=== PATIENT | female | born 1960 | race American Indian/Alaskan Native ===

== ENCOUNTER 2017-04-09 00:02 | Inpatient (IN) | payer OTHER ==
[2017-04-09 01:59] LABS: Anion Gap 24 mmol/L; BUN/Creatinine Ratio 16; Blood Urea Nitrogen 14 mg/dL (7-17); Calcium 10.2 mg/dL (8.4-10.2); Carbon Dioxide 22 mmol/L (22-30); Chloride 102.7 mmol/L (98-107); Glucose 99 mg/dL (65-100); Potassium 4.2 mmol/L (3.6-5.0); Sodium 144 mmol/L (137-145)
[2017-04-09 02:09] LABS: Hematocrit 38.4 % (30.3-42.9); Hemoglobin 13.2 gm/dl (10.1-14.3); Mean Corpuscular HGB Conc 34 % (30-34); Mean Corpuscular Hemoglobin 28 pg (28-32); Mean Corpuscular Volume 80 fl (79-97); Platelet Count 265 K/mm3 (140-440); Red Blood Count 4.77 M/mm3 (3.65-5.03); Red Cell Distribution Width 13.4 % (13.2-15.2); White Blood Count 4.8 K/mm3 (4.5-11.0)
[2017-04-09 02:57] LABS: Basophils % (Manual) 0 % (0.0-1.8); Blastocytes % (Manual) 0 %; Diff Status Complete; Platelet Estimate Consistent w Auto
--- NOTE | 2017-04-09 07:25 | XRay Report ---
CHEST 2 VIEWS INDICATION: Shortness of breath. COMPARISON: None similar at this institution. FINDINGS: PA and lateral chest radiographs demonstrate normal cardiomediastinal silhouette. Clear lungs. Intact bones. Motion partly limits lateral view. CONCLUSION: No acute disease in the chest. Thank you for the opportunity to participate in this patient's care.
--- NOTE | 2017-04-09 07:28 | Emergency Department Report ---
ED General Adult HPI - General Chief complaint: Dyspnea/Respdistress Stated complaint: DAVID Time Seen by Provider: 04/09/17 07:25 Source: patient Mode of arrival: Ambulatory Limitations: No Limitations - Related Data Allergies Allergy/AdvReac Type Severity Reaction Status Date / Time Sulfa (Sulfonamide Allergy Unknown Verified 04/09/17 00:22 Antibiotics) ED Review of Systems ROS: Stated complaint: DAVID Other details as noted in HPI ED Past Medical Hx - Past Medical History Previous Medical History?: Yes Additional medical history: pre-diabetic - Surgical History Past Surgical History?: Yes - Social History Smoking Status: Never Smoker ED Physical Exam - General Limitations: No Limitations ED Course Vital Signs 04/09/17 04/09/17 04/09/17 00:05 00:23 07:10 Temperature 97.4 F L 97.4 F L Pulse Rate 70 71 Respiratory 24 22 18 Rate Blood Pressure 167/100 167/100 O2 Sat by Pulse 100 100 99 Oximetry ED Medical Decision Making - Lab Data Result diagrams: 04/09/17 00:31 04/09/17 00:31 Laboratory Results - last 24 hr 04/09/17 04/09/17 04/09/17 00:31 00:31 05:03 WBC 4.8 RBC 4.77 Hgb 13.2 Hct 38.4 MCV 80 MCH 28 MCHC 34 RDW 13.4 Plt Count 265 Lymph % (Auto) Dental Service Technician Add Manual Diff Complete Total Counted 100 Seg Neutrophils % Dental Service Technician Seg Neuts % (Manual) 21.0 L Band Neutrophils % 0 Lymphocytes % (Manual) 73.0 H Reactive Lymphs % (Man) 0 Monocytes % (Manual) 4.0 Eosinophils % (Manual) 2.0 Basophils % (Manual) 0 Metamyelocytes % 0 Myelocytes % 0 Promyelocytes % 0 Blast Cells % 0 Nucleated RBC % Not Reportable Seg Neutrophils # Man 1.0 L Band Neutrophils # 0.0 Lymphocytes # (Manual) 3.5 Abs React Lymphs (Man) 0.0 Monocytes # (Manual) 0.2 Eosinophils # (Manual) 0.1 Basophils # (Manual) 0.0 Metamyelocytes # 0.0 Myelocytes # 0.0 Promyelocytes # 0.0 Blast Cells # 0.0 WBC Morphology Not Reportable Hypersegmented Neuts Not Reportable Hyposegmented Neuts Not Reportable Hypogranular Neuts Not Reportable Smudge Cells Not Reportable Toxic Granulation Not Reportable Toxic Vacuolation Not Reportable Dohle Bodies Not Reportable Pelger-Huet Anomaly Not Reportable Alfie Rods Not Reportable Platelet Estimate Consistent w auto Clumped Platelets Not Reportable Plt Clumps, EDTA Not Reportable Large Platelets Not Reportable Giant Platelets Not Reportable Platelet Satelliting Not Reportable Plt Morphology Comment Not Reportable RBC Morphology Not Reportable Dimorphic RBCs Not Reportable Polychromasia Not Reportable Hypochromasia Not Reportable Poikilocytosis Not Reportable Anisocytosis Not Reportable Microcytosis Not Reportable Macrocytosis Not Reportable Spherocytes Not Reportable Pappenheimer Bodies Not Reportable Sickle Cells Not Reportable Target Cells Not Reportable Tear Drop Cells Not Reportable Ovalocytes Not Reportable Helmet Cells Not Reportable Cartwright-[place] Bodies Not Reportable [place] Rings Not Reportable Darlene Cells Not Reportable Bite Cells Not Reportable Crenated Cell Not Reportable Elliptocytes Not Reportable Acanthocytes (Spur) Not Reportable Rouleaux Not Reportable Hemoglobin C Crystals Not Reportable Schistocytes Not Reportable Malaria parasites Not Reportable Janes Bodies Not Reportable Hem Pathologist Commnt No Sodium 144 Potassium 4.2 Chloride 102.7 Carbon Dioxide 22 Anion Gap 24 BUN 14 Creatinine 0.9 Estimated GFR > 60 BUN/Creatinine Ratio 16 Glucose 99 Calcium 10.2 Troponin T < 0.010 < 0.010 04/09/17 06:46 WBC RBC Hgb Hct MCV MCH MCHC RDW Plt Count Lymph % (Auto) Add Manual Diff Total Counted Seg Neutrophils % Seg Neuts % (Manual) Band Neutrophils % Lymphocytes % (Manual) Reactive Lymphs % (Man) Monocytes % (Manual) Eosinophils % (Manual) Basophils % (Manual) Metamyelocytes % Myelocytes % Promyelocytes % Blast Cells % Nucleated RBC % Seg Neutrophils # Man Band Neutrophils # Lymphocytes # (Manual) Abs React Lymphs (Man) Monocytes # (Manual) Eosinophils # (Manual) Basophils # (Manual) Metamyelocytes # Myelocytes # Promyelocytes # Blast Cells # WBC Morphology Hypersegmented Neuts Hyposegmented Neuts Hypogranular Neuts Smudge Cells Toxic Granulation Toxic Vacuolation Dohle Bodies Pelger-Huet Anomaly Alfie Rods Platelet Estimate Clumped Platelets Plt Clumps, EDTA Large Platelets Giant Platelets Platelet Satelliting Plt Morphology Comment RBC Morphology Dimorphic RBCs Polychromasia Hypochromasia Poikilocytosis Anisocytosis Microcytosis Macrocytosis Spherocytes Pappenheimer Bodies Sickle Cells Target Cells Tear Drop Cells Ovalocytes Helmet Cells Cartwright-[place] Bodies [place] Rings [place] Cells Bite Cells Crenated Cell Elliptocytes Acanthocytes (Spur) Rouleaux Hemoglobin C Crystals Schistocytes Malaria parasites Janes Bodies Hem Pathologist Commnt Sodium Potassium Chloride Carbon Dioxide Anion Gap BUN Creatinine Estimated GFR BUN/Creatinine Ratio Glucose Calcium Troponin T < 0.010 - EKG Data -: EKG Interpreted by Me EKG shows normal: sinus rhythm, axis, intervals, QRS complexes, ST-T waves Rate: normal - EKG Data Interpretation: other (consider left atrial abnormality) Critical care attestation.: If time is entered above; I have spent that time in minutes in the direct care of this critically ill patient, excluding procedure time. ED Disposition Condition: Stable Referrals: PRIMARY CARE, [Primary Care Provider] - 3-5 Days
[2017-04-09] MEDS ORDERED: NACL ONE (07:54)
--- NOTE | 2017-04-09 08:24 | Emergency Department Report ---
ED Chest Pain HPI - General Chief Complaint: Dyspnea/Respdistress Stated Complaint: DAVID Time Seen by Provider: 04/09/17 07:25 Source: patient Mode of arrival: Ambulatory Limitations: No Limitations - History of Present Illness Initial Comments: Patient states that she's been coughing for a week. Yesterday she coughed up yellow phlegm. Then she developed substernal chest pressure which she states has been persistent through the night although now somewhat mild. The pain did not radiate. It was not pleuritic. She does not report any recent travel. She is a nonsmoker within negative known first-degree relative history of coronary artery disease. She's never had a prior workup for chest pain in the past. She was found to have a blood pressure 167/100 at triage. This became normal without intervention. MD Complaint: chest pain -: Gradual Onset: other (with coughing) Pain Location: substernal Pain Radiation: none Severity scale (0 -10): 4 Quality: pressure Consistency: intermittent Improves With: nothing Worsens With: nothing re: other. denies: nausea, vomting, diaphoresis, dyspnea, sense of impending doom Other Symptoms: cough. denies: fever, syncope, rash, acid taste in mouth, leg swelling, palpitations, burping Treatments Prior to Arrival: none - Related Data Allergies Allergy/AdvReac Type Severity Reaction Status Date / Time Sulfa (Sulfonamide Allergy Unknown Verified 04/09/17 00:22 Antibiotics) Heart Score - HEART Score History: Slightly suspicious EKG: Normal Age: < 45 Risk factors: 1-2 risk factors Troponin: < normal limit HEART Score: 1 - Critical Actions Critical Actions: 0-3 pts:0.9-1.7%risk of adverse cardiac event.Candidate for discharge ED Review of Systems ROS: Stated complaint: DAVID Other details as noted in HPI Constitutional: denies: chills, fever Eyes: denies: eye pain, eye discharge, vision change ENT: denies: ear pain, throat pain Respiratory: cough. denies: shortness of breath, wheezing Cardiovascular: chest pain. denies: palpitations Endocrine: no symptoms reported Gastrointestinal: denies: abdominal pain, nausea, diarrhea Genitourinary: denies: urgency, dysuria, discharge Musculoskeletal: denies: back pain, joint swelling, arthralgia Skin: denies: rash, lesions Neurological: denies: headache, weakness, paresthesias Psychiatric: denies: anxiety, depression Hematological/Lymphatic: denies: easy bleeding, easy bruising ED Past Medical Hx - Past Medical History Previous Medical History?: Yes Additional medical history: pre-diabetic - Surgical History Past Surgical History?: Yes - Social History Smoking Status: Never Smoker ED Physical Exam - General Limitations: No Limitations General appearance: alert, in no apparent distress - Head Head exam: Present: atraumatic, normocephalic - Eye Eye exam: Present: normal appearance. Absent: scleral icterus - ENT ENT exam: Present: mucous membranes moist - Neck Neck exam: Present: normal inspection - Respiratory Respiratory exam: Present: normal lung sounds bilaterally. Absent: respiratory distress - Cardiovascular Cardiovascular Exam: Present: regular rate, normal rhythm. Absent: systolic murmur, diastolic murmur, rubs, gallop - GI/Abdominal GI/Abdominal exam: Present: soft, normal bowel sounds. Absent: distended, tenderness, guarding, rebound, rigid - Extremities Exam Extremities exam: Present: normal inspection - Back Exam Back exam: Present: normal inspection - Neurological Exam Neurological exam: Present: alert, oriented X3 - Psychiatric Psychiatric exam: Present: normal affect, normal mood - Skin Skin exam: Present: warm, dry, intact, normal color. Absent: rash ED Course Vital Signs 04/09/17 04/09/17 04/09/17 00:05 00:23 07:02 Temperature 97.4 F L 97.4 F L Pulse Rate 71 71 Respiratory 24 22 Rate Blood Pressure 167/100 167/100 119/65 Blood Pressure [Right] O2 Sat by Pulse 100 100 Oximetry 04/09/17 04/09/17 04/09/17 07:10 07:16 07:30 Temperature Pulse Rate Respiratory 18 Rate Blood Pressure 119/65 119/65 Blood Pressure [Right] O2 Sat by Pulse 99 100 100 Oximetry 04/09/17 04/09/17 04/09/17 07:46 08:00 08:11 Temperature Pulse Rate 55 L Respiratory 16 Rate Blood Pressure 119/65 Blood Pressure 110/65 [Right] O2 Sat by Pulse 100 100 100 Oximetry - Reevaluation(s) Reevaluation #1: CT angiogram was ordered. The patient was referred to the hospitalist service for further care and evaluation. 04/09/17 08:27 JASON score - Jason Score Age > 65: (0) No Aspirin use within the Past 7 Days: (0) No 3 or more CAD Risk Factors: (0) No 2 or more Angina events in past 24 hrs: (0) No Known CAD with more than 50% Stenosis: (0) No Elevated Cardiac Markers: (0) No ST Deviation Greater than 0.5mm: (0) No JASON Score: 0 ED Medical Decision Making - Lab Data Result diagrams: 04/09/17 00:31 04/09/17 00:31 Laboratory Results - last 24 hr 04/09/17 04/09/17 04/09/17 00:31 00:31 05:03 WBC 4.8 RBC 4.77 Hgb 13.2 Hct 38.4 MCV 80 MCH 28 MCHC 34 RDW 13.4 Plt Count 265 Lymph % (Auto) City Wellness Coordinator Add Manual Diff Complete Total Counted 100 Seg Neutrophils % City Wellness Coordinator Seg Neuts % (Manual) 21.0 L Band Neutrophils % 0 Lymphocytes % (Manual) 73.0 H Reactive Lymphs % (Man) 0 Monocytes % (Manual) 4.0 Eosinophils % (Manual) 2.0 Basophils % (Manual) 0 Metamyelocytes % 0 Myelocytes % 0 Promyelocytes % 0 Blast Cells % 0 Nucleated RBC % Not Reportable Seg Neutrophils # Man 1.0 L Band Neutrophils # 0.0 Lymphocytes # (Manual) 3.5 Abs React Lymphs (Man) 0.0 Monocytes # (Manual) 0.2 Eosinophils # (Manual) 0.1 Basophils # (Manual) 0.0 Metamyelocytes # 0.0 Myelocytes # 0.0 Promyelocytes # 0.0 Blast Cells # 0.0 WBC Morphology Not Reportable Hypersegmented Neuts Not Reportable Hyposegmented Neuts Not Reportable Hypogranular Neuts Not Reportable Smudge Cells Not Reportable Toxic Granulation Not Reportable Toxic Vacuolation Not Reportable Dohle Bodies Not Reportable Pelger-Huet Anomaly Not Reportable Alfie Rods Not Reportable Platelet Estimate Consistent w auto Clumped Platelets Not Reportable Plt Clumps, EDTA Not Reportable Large Platelets Not Reportable Giant Platelets Not Reportable Platelet Satelliting Not Reportable Plt Morphology Comment Not Reportable RBC Morphology Not Reportable Dimorphic RBCs Not Reportable Polychromasia Not Reportable Hypochromasia Not Reportable Poikilocytosis Not Reportable Anisocytosis Not Reportable Microcytosis Not Reportable Macrocytosis Not Reportable Spherocytes Not Reportable Pappenheimer Bodies Not Reportable Sickle Cells Not Reportable Target Cells Not Reportable Tear Drop Cells Not Reportable Ovalocytes Not Reportable Helmet Cells Not Reportable Cartwright-[place] Bodies Not Reportable [place] Rings Not Reportable Darlene Cells Not Reportable Bite Cells Not Reportable Crenated Cell Not Reportable Elliptocytes Not Reportable Acanthocytes (Spur) Not Reportable Rouleaux Not Reportable Hemoglobin C Crystals Not Reportable Schistocytes Not Reportable Malaria parasites Not Reportable Janes Bodies Not Reportable Hem Pathologist Commnt No PT INR APTT Sodium 144 Potassium 4.2 Chloride 102.7 Carbon Dioxide 22 Anion Gap 24 BUN 14 Creatinine 0.9 Estimated GFR > 60 BUN/Creatinine Ratio 16 Glucose 99 Calcium 10.2 Troponin T < 0.010 < 0.010 04/09/17 04/09/17 06:46 07:47 WBC RBC Hgb Hct MCV MCH MCHC RDW Plt Count Lymph % (Auto) Add Manual Diff Total Counted Seg Neutrophils % Seg Neuts % (Manual) Band Neutrophils % Lymphocytes % (Manual) Reactive Lymphs % (Man) Monocytes % (Manual) Eosinophils % (Manual) Basophils % (Manual) Metamyelocytes % Myelocytes % Promyelocytes % Blast Cells % Nucleated RBC % Seg Neutrophils # Man Band Neutrophils # Lymphocytes # (Manual) Abs React Lymphs (Man) Monocytes # (Manual) Eosinophils # (Manual) Basophils # (Manual) Metamyelocytes # Myelocytes # Promyelocytes # Blast Cells # WBC Morphology Hypersegmented Neuts Hyposegmented Neuts Hypogranular Neuts Smudge Cells Toxic Granulation Toxic Vacuolation Dohle Bodies Pelger-Huet Anomaly Alfie Rods Platelet Estimate Clumped Platelets Plt Clumps, EDTA Large Platelets Giant Platelets Platelet Satelliting Plt Morphology Comment RBC Morphology Dimorphic RBCs Polychromasia Hypochromasia Poikilocytosis Anisocytosis Microcytosis Macrocytosis Spherocytes Pappenheimer Bodies Sickle Cells Target Cells Tear Drop Cells Ovalocytes Helmet Cells Cartwright-[place] Bodies [place] Rings Darlene Cells Bite Cells Crenated Cell Elliptocytes Acanthocytes (Spur) Rouleaux Hemoglobin C Crystals Schistocytes Malaria parasites Janes Bodies Hem Pathologist Commnt PT 12.9 INR 0.93 APTT 28.4 Sodium Potassium Chloride Carbon Dioxide Anion Gap BUN Creatinine Estimated GFR BUN/Creatinine Ratio Glucose Calcium Troponin T < 0.010 - EKG Data -: EKG Interpreted by Me EKG shows normal: sinus rhythm, axis, intervals, QRS complexes, ST-T waves Rate: normal - EKG Data Interpretation: no acute changes - Radiology Data interpreted by me: Chest x-ray showed no acute process Critical care attestation.: If time is entered above; I have spent that time in minutes in the direct care of this critically ill patient, excluding procedure time. ED Disposition Clinical Impression: Sinus bradycardia, Cough Chest pain Qualifiers: Chest pain type: unspecified Qualified Code(s): R07.9 - Chest pain, unspecified Neutropenia Qualifiers: Neutropenia type: unspecified Qualified Code(s): D70.9 - Neutropenia, unspecified Disposition: DC-09 OP ADMIT IP TO THIS HOSP Is pt being admited?: No Does the pt Need Aspirin: Yes Condition: Stable Instructions: Chest Pain (ED) Referrals: PRIMARY CARE, [Primary Care Provider] - 3-5 Days Time of Disposition: 08:29
[2017-04-09 08:25] LABS: INR 0.93 (0.87-1.13)
[2017-04-09 08:26] LABS: Partial Thromboplastin Time 28.4 Sec. (24.2-36.6)
[2017-04-09] MEDS ORDERED: BABY ASPIRIN PO ONE (08:29)
[2017-04-09 08:34] LABS: Alanine Aminotransferase 23 units/L (7-56); Albumin 4.4 g/dL (3.9-5); Albumin/Globulin Ratio 1.3 %; Alkaline Phosphatase 71 units/L (35-129); Total Protein 7.9 g/dL (6.3-8.2)
[2017-04-09 08:35] LABS: Bilirubin,Direct < 0.2 mg/dL (0-0.2); Bilirubin,Indirect 0.9 mg/dL
--- NOTE | 2017-04-09 08:50 | Cat Scan Report ---
CTA CHEST INDICATION: Chest pain. COMPARISON: None similar. FINDINGS: Chest CTA performed following intravenous administration of 100 cc of Omnipaque 350. Rotational MIP's also obtained. Normal heart size. No effusions. No aortic aneurysm, dissection or suspicious pulmonary arterial filling defects. No size significant adenopathy. Normal airway. Unremarkable thyroid. Clear lungs. Images through included upper abdomen reveal no significant abnormality. Unremarkable bones. CONCLUSION: No CT evidence of pulmonary embolism. Thank you for the opportunity to participate in this patient's care.
--- NOTE | 2017-04-09 09:22 | History and Physical Report ---
History of Present Illness Date of examination: 04/09/17 Date of admission: 04/09/2017 Chief complaint: chest pain History of present illness: Patient is a 57 year-old female with no past medical history, who presented to the Emergency Department complaining of Midsternal chest pain. Patient developed cough and she has had progressive worsening of shortness of breath. Patient denies she has had no fevers, chills, or night sweats. No hx of recurrent pneumonia. She has no sick contact, TB exposure. She also has no pets , has not been around any farm animals, and has not traveled recently or been around those who have. Patient also compliant Midsternal chest pain. She states that the pain began yesterday, intermittent midsternal chest pain. Patient described the pain as, sharp, pressure and squeezing in his chest; radiated to her back. The sharp pain lasted around 1 minute. There is no aggravating or reliving factors. The painful episodes did not increase in intensity or severity during this time. Patient denies chest pain at present time. He denies nausea, vomiting during these episodes of pain. He experienced shortness of breath, heart palpations and dizziness nausea, and diaphoresis during these episodes of pain. Past History Past Medical History: No medical history Past Surgical History: No surgical history Social history: denies: smoking, alcohol abuse Family history: denies: hypertension Medications and Allergies Allergies Allergy/AdvReac Type Severity Reaction Status Date / Time Sulfa (Sulfonamide Allergy Unknown Verified 04/09/17 00:22 Antibiotics) Home Medications Medication Instructions Recorded Confirmed Last Taken Type No Known Home Medications [No 04/09/17 04/09/17 Unknown History Reported Home Medications] Active Meds: Active Medications Acetaminophen (Tylenol) 650 mg PO Q4H PRN PRN Reason: Pain MILD(1-3)/Fever >100.5/CALIXTO Aspirin (Aspirin) 325 mg PO DAILY DANIEL Bisacodyl (Dulcolax) 10 mg CO QDAY PRN PRN Reason: Constipation unrelieved by MOM Enoxaparin Sodium (Lovenox) 40 mg SUB-Q QDAY DANIEL Morphine Sulfate (Morphine) 2 mg IV Q4H PRN PRN Reason: Pain, Moderate (4-6) Nitroglycerin (Nitrostat) 0.4 mg SL .Q5MIN PRN PRN Reason: Chest Pain Ondansetron HCl (Zofran) 4 mg IM Q4H PRN PRN Reason: Nausea And Vomiting Review of Systems Constitutional: no weight loss, no weight gain, no fever, no chills, no sweats Ears, nose, mouth and throat: no nasal congestion, no nasal discharge, no sinus pressure Cardiovascular: chest pain, no palpitations, no rapid/irregular heart beat, no edema, no syncope Respiratory: cough, cough with sputum (yellow ), shortness of breath, dyspnea on exertion Gastrointestinal: no nausea, no vomiting, no diarrhea Genitourinary Female: no flank pain Menstruation: no post hysterectomy, no ammenorrhea, no ammenorrhea on BC, no period normal Rectal: no incontinence, no bleeding Musculoskeletal: no neck pain, no shooting arm pain, no arm numbness/tingling Integumentary: no redness, no sores, no wounds, no jaundice Neurological: no weakness, no parathesias, no numbness, no tingling Psychiatric: no hypersomnia, no change in appetite, no change in libido, no suicidal ideation Endocrine: no polydipsia, no polyuria, no nocturia, no excessive sweating Hematologic/Lymphatic: no easy bruising, no easy bleeding Allergic/Immunologic: no allergic rhinitis Exam - Constitutional Vitals: Temp Pulse Resp BP Pulse Ox 97.4 F L 55 L 16 110/65 100 04/09/17 00:23 04/09/17 08:11 04/09/17 08:11 04/09/17 08:11 04/09/17 08:11 General appearance: Present: no acute distress - EENT Eyes: Present: PERRL ENT: hearing intact - Neck Neck: Present: supple - Respiratory Respiratory effort: normal Respiratory: bilateral: CTA - Cardiovascular Rhythm: regular Heart Sounds: Present: S1 & S2 - Abdominal General gastrointestinal: Present: soft, non-tender - Rectal Rectal Exam: deferred - Integumentary Integumentary: Present: clear, warm, dry - Musculoskeletal Musculoskeletal: strength equal bilaterally - Psychiatric Psychiatric: appropriate mood/affect - Neurologic Neurologic: CNII-XII intact - Allied Health Allied health notes reviewed: nursing Results - Labs CBC & Chem 7: 04/09/17 00:31 04/09/17 00:31 Labs: Laboratory Last Values WBC 4.8 K/mm3 (4.5-11.0) 04/09/17 00:31 RBC 4.77 M/mm3 (3.65-5.03) 04/09/17 00: Hgb 13.2 gm/dl (10.1-14.3) 04/09/17 00: Hct 38.4 % (30.3-42.9) 04/09/17 00: MCV 80 fl (79-97) 04/09/17: MCH 28 pg (28-32) 04/09/17 00: MCHC 34 % (30-34) 04/09/17 00: RDW 13.4 % (13.2-15.2) 04/09/17 00: Plt Count 265 K/mm3 (140-440) 04/09/17 00:31 Lymph % (Auto) Hazmat Cdl A Driver 04/09/17 00:31 Add Manual Diff Complete 04/09/17 00: Total Counted 100 04/09/17 00: Seg Neutrophils % Hazmat Cdl A Driver 04/09/17 00: Seg Neuts % (Manual) 21.0 % (40.0-70.0) L 04/09/17 00:31 Band Neutrophils % 0 % 04/09/17 00: Lymphocytes % (Manual) 73.0 % (13.4-35.0) H 04/09/17 00:31 Reactive Lymphs % (Man) 0 % 04/09/17 00: Monocytes % (Manual) 4.0 % (0.0-7.3) 04/09/17 00: Eosinophils % (Manual) 2.0 % (0.0-4.3) 04/09/17 00: Basophils % (Manual) 0 % (0.0-1.8) 04/09/17 00: Metamyelocytes % 0 % 04/09/17 00:31 Myelocytes % 0 % 04/09/17 00:31 Promyelocytes % 0 % 04/09/17 00:31 Blast Cells % 0 % 04/09/17 00:31 Nucleated RBC % Not Reportable 04/09/17 00: Seg Neutrophils # Man 1.0 K/mm3 (1.8-7.7) L 04/09/17 00:31 Band Neutrophils # 0.0 K/mm3 04/09/17 00:31 Lymphocytes # (Manual) 3.5 K/mm3 (1.2-5.4) 04/09/17 00:31 Abs React Lymphs (Man) 0.0 K/mm3 04/09/17 00:31 Monocytes # (Manual) 0.2 K/mm3 (0.0-0.8) 04/09/17 00:31 Eosinophils # (Manual) 0.1 K/mm3 (0.0-0.4) 04/09/17 00:31 Basophils # (Manual) 0.0 K/mm3 (0.0-0.1) 04/09/17 00:31 Metamyelocytes # 0.0 K/mm3 04/09/17 00:31 Myelocytes # 0.0 K/mm3 04/09/17 00:31 Promyelocytes # 0.0 K/mm3 04/09/17 00:31 Blast Cells # 0.0 K/mm3 04/09/17 00:31 WBC Morphology Not Reportable 04/09/17 00:31 Hypersegmented Neuts Not Reportable 04/09/17 00:31 Hyposegmented Neuts Not Reportable 04/09/17 00:31 Hypogranular Neuts Not Reportable 04/09/17 00:31 Smudge Cells Not Reportable 04/09/17 00:31 Toxic Granulation Not Reportable 04/09/17 00:31 Toxic Vacuolation Not Reportable 04/09/17 00:31 Dohle Bodies Not Reportable 04/09/17 00:31 Pelger-Huet Anomaly Not Reportable 04/09/17 00:31 Alfie Rods Not Reportable 04/09/17 00:31 Platelet Estimate Consistent w auto 04/09/17 00:31 Clumped Platelets Not Reportable 04/09/17 00:31 Plt Clumps, EDTA Not Reportable 04/09/17 00:31 Large Platelets Not Reportable 04/09/17 00:31 Giant Platelets Not Reportable 04/09/17 00:31 Platelet Satelliting Not Reportable 04/09/17 00:31 Plt Morphology Comment Not Reportable 04/09/17 00:31 RBC Morphology Not Reportable 04/09/17 00:31 Dimorphic RBCs Not Reportable 04/09/17 00:31 Polychromasia Not Reportable 04/09/17 00:31 Hypochromasia Not Reportable 04/09/17 00:31 Poikilocytosis Not Reportable 04/09/17 00:31 Anisocytosis Not Reportable 04/09/17 00:31 Microcytosis Not Reportable 04/09/17 00:31 Macrocytosis Not Reportable 04/09/17 00:31 Spherocytes Not Reportable 04/09/17 00:31 Pappenheimer Bodies Not Reportable 04/09/17 00:31 Sickle Cells Not Reportable 04/09/17 00:31 Target Cells Not Reportable 04/09/17 00:31 Tear Drop Cells Not Reportable 04/09/17 00:31 Ovalocytes Not Reportable 04/09/17 00:31 Helmet Cells Not Reportable 04/09/17 00:31 Cartwright-Disney Bodies Not Reportable 04/09/17 00:31 [place] Rings Not Reportable 04/09/17 00:31 [place] Cells Not Reportable 04/09/17 00:31 Bite Cells Not Reportable 04/09/17 00:31 Crenated Cell Not Reportable 04/09/17 00:31 Elliptocytes Not Reportable 04/09/17 00:31 Acanthocytes (Spur) Not Reportable 04/09/17 00:31 Rouleaux Not Reportable 04/09/17 00:31 Hemoglobin C Crystals Not Reportable 04/09/17 00:31 Schistocytes Not Reportable 04/09/17 00:31 Malaria parasites Not Reportable 04/09/17 00:31 Janes Bodies Not Reportable 04/09/17 00:31 Hem Pathologist Commnt No 04/09/17 00:31 PT 12.9 Sec. (12.2-14.9) 04/09/17 07:47 INR 0.93 (0.87-1.13) 04/09/17 07:47 APTT 28.4 Sec. (24.2-36.6) 04/09/17 07:47 D-Dimer < 135.00 ng/mlDDU (0-234) 04/09/17 07:47 Sodium 144 mmol/L (137-145) 04/09/17 00:31 Potassium 4.2 mmol/L (3.6-5.0) 04/09/17 00:31 Chloride 102.7 mmol/L (98-107) 04/09/17 00:31 Carbon Dioxide 22 mmol/L (22-30) 04/09/17 00:31 Anion Gap 24 mmol/L 04/09/17 00:31 BUN 14 mg/dL (7-17) 04/09/17 00:31 Creatinine 0.9 mg/dL (0.7-1.2) 04/09/17 00:31 Estimated GFR > 60 ml/min 04/09/17 00:31 BUN/Creatinine Ratio 16 % 04/09/17 00:31 Glucose 99 mg/dL (65-100) 04/09/17 00:31 Lactic Acid 0.70 mmol/L (0.7-2.0) 04/09/17 07:47 Calcium 10.2 mg/dL (8.4-10.2) 04/09/17 00:31 Total Bilirubin 1.10 mg/dL (0.1-1.2) 04/09/17 07:47 Direct Bilirubin < 0.2 mg/dL (0-0.2) 04/09/17 07:47 Indirect Bilirubin 0.9 mg/dL 04/09/17 07:47 AST 25 units/L (5-40) 04/09/17 07:47 ALT 23 units/L (7-56) 04/09/17 07:47 Alkaline Phosphatase 71 units/L (35-129) 04/09/17 07:47 Troponin T < 0.010 ng/mL (0.00-0.029) 04/09/17 06:46 Total Protein 7.9 g/dL (6.3-8.2) 04/09/17 07:47 Albumin 4.4 g/dL (3.9-5) 04/09/17 07:47 Albumin/Globulin Ratio 1.3 % 04/09/17 07:47 - Imaging and Cardiology Chest x-ray: image reviewed (unremarkable) CT scan - chest: image reviewed (no evidence of embolism) Assessment and Plan Assessment and plan: Chest Pain We will admit to telemetry floor. Chest x-ray unremarkable CTA no evidence of pulmonary embolism. EKG normal sinus; no ST elevation or T-wave inversion. Negative cardiac enzyme X3 Start on aspirin Nitroglycerin when necessary Morphine ordered for pain Stress test ordered. Increased in blood pressure Most likely stress reaction She was found to have a blood pressure 167/100 at triage; became normal without intervention. Low sodium diet Closely monitor blood pressure Sinus bradycardia IV fluid hydration Admit to telemetry Closely monitor DVT prophylaxis on Lovenox Advance Directives: Yes VTE prophylaxis?: Chemical Contraindication Mechanical VTE Prophylaxis: Treatment Not Indicated Plan of care discussed with patient/family: Yes
[2017-04-09] MEDS ORDERED: DULCOLAX PR PRN (10:00)
[2017-04-09] MEDS ORDERED: MORPHINE IV PRN (10:00)
[2017-04-09] MEDS ORDERED: NITROSTAT SL PRN (10:00)
[2017-04-09] MEDS ORDERED: TYLENOL PO PRN (10:00)
[2017-04-09] MEDS ORDERED: ZOFRAN IV PRN (10:00)
[2017-04-09] MEDS: ASPIRIN PO SCH (10:57)
[2017-04-09] MEDS: LOVENOX SUB-Q SCH (11:10)
[2017-04-10 06:09] LABS: Hematocrit 39.1 % (30.3-42.9); Hemoglobin 12.9 gm/dl (10.1-14.3); Mean Corpuscular HGB Conc 33 % (30-34); Mean Corpuscular Hemoglobin 27 pg (28-32); Mean Corpuscular Volume 81 fl (79-97); Platelet Count 251 K/mm3 (140-440); Red Cell Distribution Width 13.4 % (13.2-15.2); White Blood Count 3.6 K/mm3 (4.5-11.0)
[2017-04-10 06:29] LABS: Anion Gap 16 mmol/L; BUN/Creatinine Ratio 18; Blood Urea Nitrogen 14 mg/dL (7-17); Calcium 9.3 mg/dL (8.4-10.2); Carbon Dioxide 25 mmol/L (22-30); Chloride 104.5 mmol/L (98-107); Glucose 89 mg/dL (65-100); Potassium 3.9 mmol/L (3.6-5.0); Sodium 142 mmol/L (137-145)
[2017-04-10 06:45] LABS: Basophils % (Manual) 0 % (0.0-1.8); Blastocytes % (Manual) 0 %; Diff Status Complete; Platelet Estimate Consistent w Auto
--- NOTE | 2017-04-10 08:27 | Progress Note ---
Hospitalist Physical - Constitutional Vitals: Temp Pulse Resp BP Pulse Ox 98.5 F 54 L 18 113/64 98 04/10/17 04:37 04/10/17 04:37 04/10/17 04:37 04/10/17 04:37 04/10/17 04:37 General appearance: Present: no acute distress Results - Labs CBC & Chem 7: 04/10/17 05:53 04/10/17 05:53 Labs: Laboratory Last Values WBC 3.6 K/mm3 (4.5-11.0) L 04/10/17 05:53 RBC 4.80 M/mm3 (3.65-5.03) 04/10/17 05:53 Hgb 12.9 gm/dl (10.1-14.3) 04/10/17 05:53 Hct 39.1 % (30.3-42.9) 04/10/17 05:53 MCV 81 fl (79-97) 04/10/17 05:53 MCH 27 pg (28-32) L 04/10/17 05:53 MCHC 33 % (30-34) 04/10/17 05:53 RDW 13.4 % (13.2-15.2) 04/10/17 05:53 Plt Count 251 K/mm3 (140-440) 04/10/17 05:53 Lymph % (Auto) Motor Electrician 04/10/17 05:53 Add Manual Diff Complete 04/10/17 05:53 Total Counted 100 04/10/17 05:53 Seg Neutrophils % Motor Electrician 04/10/17 05:53 Seg Neuts % (Manual) 29.0 % (40.0-70.0) L 04/10/17 05:53 Band Neutrophils % 0 % 04/10/17 05:53 Lymphocytes % (Manual) 64.0 % (13.4-35.0) H 04/10/17 05:53 Reactive Lymphs % (Man) 0 % 04/10/17 05:53 Monocytes % (Manual) 4.0 % (0.0-7.3) 04/10/17 05:53 Eosinophils % (Manual) 3.0 % (0.0-4.3) 04/10/17 05:53 Basophils % (Manual) 0 % (0.0-1.8) 04/10/17 05:53 Metamyelocytes % 0 % 04/10/17 05:53 Myelocytes % 0 % 04/10/17 05:53 Promyelocytes % 0 % 04/10/17 05:53 Blast Cells % 0 % 04/10/17 05:53 Nucleated RBC % Not Reportable 04/10/17 05:53 Seg Neutrophils # Man 1.0 K/mm3 (1.8-7.7) L 04/10/17 05:53 Band Neutrophils # 0.0 K/mm3 04/10/17 05:53 Lymphocytes # (Manual) 2.3 K/mm3 (1.2-5.4) 04/10/17 05:53 Abs React Lymphs (Man) 0.0 K/mm3 04/10/17 05:53 Monocytes # (Manual) 0.1 K/mm3 (0.0-0.8) 04/10/17 05:53 Eosinophils # (Manual) 0.1 K/mm3 (0.0-0.4) 04/10/17 05:53 Basophils # (Manual) 0.0 K/mm3 (0.0-0.1) 04/10/17 05:53 Metamyelocytes # 0.0 K/mm3 04/10/17 05:53 Myelocytes # 0.0 K/mm3 04/10/17 05:53 Promyelocytes # 0.0 K/mm3 04/10/17 05:53 Blast Cells # 0.0 K/mm3 04/10/17 05:53 WBC Morphology Not Reportable 04/10/17 05:53 Hypersegmented Neuts Not Reportable 04/10/17 05:53 Hyposegmented Neuts Not Reportable 04/10/17 05:53 Hypogranular Neuts Not Reportable 04/10/17 05:53 Smudge Cells Not Reportable 04/10/17 05:53 Toxic Granulation Not Reportable 04/10/17 05:53 Toxic Vacuolation Not Reportable 04/10/17 05:53 Dohle Bodies Not Reportable 04/10/17 05:53 Pelger-Huet Anomaly Not Reportable 04/10/17 05:53 Alfie Rods Not Reportable 04/10/17 05:53 Platelet Estimate Consistent w auto 04/10/17 05:53 Clumped Platelets Not Reportable 04/10/17 05:53 Plt Clumps, EDTA Not Reportable 04/10/17 05:53 Large Platelets Not Reportable 04/10/17 05:53 Giant Platelets Not Reportable 04/10/17 05:53 Platelet Satelliting Not Reportable 04/10/17 05:53 Plt Morphology Comment Not Reportable 04/10/17 05:53 RBC Morphology Not Reportable 04/10/17 05:53 Dimorphic RBCs Not Reportable 04/10/17 05:53 Polychromasia Not Reportable 04/10/17 05:53 Hypochromasia Not Reportable 04/10/17 05:53 Poikilocytosis Not Reportable 04/10/17 05:53 Anisocytosis Not Reportable 04/10/17 05:53 Microcytosis Not Reportable 04/10/17 05:53 Macrocytosis Not Reportable 04/10/17 05:53 Spherocytes Not Reportable 04/10/17 05:53 Pappenheimer Bodies Not Reportable 04/10/17 05:53 Sickle Cells Not Reportable 04/10/17 05:53 Target Cells Not Reportable 04/10/17 05:53 Tear Drop Cells Not Reportable 04/10/17 05:53 Ovalocytes Not Reportable 04/10/17 05:53 Helmet Cells Not Reportable 04/10/17 05:53 Cartwright-[place] Bodies Not Reportable 04/10/17 05:53 [place] Rings Not Reportable 04/10/17 05:53 [place]opold Cells Not Reportable 04/10/17 05:53 Bite Cells Not Reportable 04/10/17 05:53 Crenated Cell Not Reportable 04/10/17 05:53 Elliptocytes Not Reportable 04/10/17 05:53 Acanthocytes (Spur) Not Reportable 04/10/17 05:53 Rouleaux Not Reportable 04/10/17 05:53 Hemoglobin C Crystals Not Reportable 04/10/17 05:53 Schistocytes Not Reportable 04/10/17 05:53 Malaria parasites Not Reportable 04/10/17 05:53 Janes Bodies Not Reportable 04/10/17 05:53 Hem Pathologist Commnt No 04/10/17 05:53 PT 12.9 Sec. (12.2-14.9) 04/09/17 07:47 INR 0.93 (0.87-1.13) 04/09/17 07:47 APTT 28.4 Sec. (24.2-36.6) 04/09/17 07:47 D-Dimer < 135.00 ng/mlDDU (0-234) 04/09/17 07:47 Sodium 142 mmol/L (137-145) 04/10/17 05:53 Potassium 3.9 mmol/L (3.6-5.0) 04/10/17 05:53 Chloride 104.5 mmol/L (98-107) 04/10/17 05:53 Carbon Dioxide 25 mmol/L (22-30) 04/10/17 05:53 Anion Gap 16 mmol/L 04/10/17 05:53 BUN 14 mg/dL (7-17) 04/10/17 05:53 Creatinine 0.8 mg/dL (0.7-1.2) 04/10/17 05:53 Estimated GFR > 60 ml/min 04/10/17 05:53 BUN/Creatinine Ratio 18 % 04/10/17 05:53 Glucose 89 mg/dL (65-100) 04/10/17 05:53 Lactic Acid 0.70 mmol/L (0.7-2.0) 04/09/17 07:47 Calcium 9.3 mg/dL (8.4-10.2) 04/10/17 05:53 Total Bilirubin 1.10 mg/dL (0.1-1.2) 04/09/17 07:47 Direct Bilirubin < 0.2 mg/dL (0-0.2) 04/09/17 07:47 Indirect Bilirubin 0.9 mg/dL 04/09/17 07:47 AST 25 units/L (5-40) 04/09/17 07:47 ALT 23 units/L (7-56) 04/09/17 07:47 Alkaline Phosphatase 71 units/L (35-129) 04/09/17 07:47 Troponin T < 0.010 ng/mL (0.00-0.029) 04/09/17 06:46 Total Protein 7.9 g/dL (6.3-8.2) 04/09/17 07:47 Albumin 4.4 g/dL (3.9-5) 04/09/17 07:47 Albumin/Globulin Ratio 1.3 % 04/09/17 07:47
[2017-04-10 09:26] VITALS: BP 128/69
[2017-04-10 12:29] LABS: Bacteria,Urine 1+ /HPF (Negative); Bilirubin,Urine NEG (Negative); Blood,Urine SM (Negative); Ketones,Urine NEG (Negative); Leukocyte Esterase,Urine NEG (Negative); Mucus,Urine FEW /HPF; Nitrite,Urine NEG (Negative); Protein,Urine <15 mg/dL mg/dL (Negative); RBC,Urine < 1.0 /HPF (0.0-6.0); Urobilinogen,Urine < 2.0 mg/dL (<2.0)
[2017-04-10] MEDS: ASPIRIN PO SCH (13:07)
[2017-04-10] MEDS: LOVENOX SUB-Q SCH (13:07)
--- NOTE | 2017-04-10 13:26 | Discharge Summary ---
Providers - Providers Date of Admission: 04/09/17 09:19 Date of discharge: 04/10/17 Attending physician: SALVADOR PINEDA Primary care physician: DIAMOND LIU MD Hospitalization Reason for admission: Chest pain Condition: Stable Hospital course: Patient is a 57 year-old female with no past medical history, who presented to the Emergency Department complaining of Midsternal chest pain. She states that the pain began yesterday, intermittent midsternal chest pain. Patient presented with atypical chest pain, ACS was ruled out, stress test normal MPI, negative cardiac enzymes, ECGs shows normal sinus rythm, CXR. Patient chest pain probably secondary to GERD. She was treated with IV fluid hydration and antiacid medications. patient discharge with antiacid, Patient is clinically improved and no chest pain at present time. Patient advised to follow-up with her primary care provider. Discharge Diagnosed Chest Pain due to GERD Hyperlipidemia Disposition: TO HOME OR SELFCARE Core Measure Documentation - Palliative Care Palliative Care/ Comfort Measures: Not Applicable - Core Measures Any of the following diagnoses?: none Exam - Constitutional Vitals: Temp Pulse Resp BP Pulse Ox 97.7 F 55 L 16 128/69 98 04/10/17 08:20 04/10/17 09:00 04/10/17 08:20 04/10/17 08:18 04/10/17 08:20 General appearance: Present: no acute distress - EENT Eyes: Present: PERRL ENT: hearing intact - Neck Neck: Present: supple - Respiratory Respiratory: bilateral: CTA - Cardiovascular Rhythm: regular Heart Sounds: Present: S1 & S2 Peripheral Pulses: within normal limits - Abdominal General gastrointestinal: Present: soft, non-tender Female genitourinary: Present: deferred - Rectal Rectal Exam: deferred - Integumentary Integumentary: Present: clear, warm, dry - Musculoskeletal Musculoskeletal: strength equal bilaterally - Psychiatric Psychiatric: appropriate mood/affect - Neurologic Neurologic: CNII-XII intact - Allied Health Allied health notes reviewed: nursing Plan Activity: no restrictions Weight Bearing Status: Weight Bear as Tolerated Follow up with: PRIMARY CARE, [Primary Care Provider] - 3-5 Days Prescriptions: Famotidine [Pepcid] 20 mg PO BID 30 Days
--- NOTE | 2017-04-11 04:15 | Treadmill Report ---
INDICATION: Chest pain. FINDINGS: There is no scintigraphic evidence of myocardial ischemia. The left ventricle is normal in size ____ function with the left ventricular ejection fraction measured at 65%. Normal wall motion and wall thickening is noted on gated imaging. CONCLUSION: Normal perfusion scan. JOB# [id number]
== END 2017-04-10 14:52 | disposition home or self-care (01) | DRG 392 ==
LOC: ED 00:02 → 4A 09:19
PROVIDERS: ADMIT Internal Medicine; ATTEND Internal Medicine
DX: K21.9 Gastro-esophageal reflux disease without esophagitis (principal); R00.1 Bradycardia, unspecified; D70.9 Neutropenia, unspecified; E78.5 Hyperlipidemia, unspecified; I25.10 Atherosclerotic heart disease of native coronary artery without angina pectoris; Z88.2 Allergy status to sulfonamides
CPT/HCPCS: 36415; 71020; 71275; 78452; 80048; 80074; 81001; 82140; 84484; 85007; 85025; 85379; 85610; 85730; 87040; 93005; 93010; 93017; A9502; J1650; Q9967

== ENCOUNTER 2017-07-02 20:27 | Emergency (ER) | payer SELFPAY ==
[2017-07-02 20:36] VITALS: BP 160/87
== END 2017-07-03 07:40 | disposition left against medical advice (07) ==
LOC: ED 20:27
DX: M54.2 Cervicalgia (principal); Z53.21 Procedure and treatment not carried out due to patient leaving prior to being seen by health care provider